=== PATIENT | female | born 1970 | race Caucasian/White ===

== ENCOUNTER 2020-03-06 12:35 | Emergency (ER) | payer MEDICAID ==
[~2020-03-06] VITALS: Ht 152.4 cm; Wt 76.2 kg
--- NOTE | 2020-03-06 12:40 | NUR ---
Patient to ER bed 03 to gown for evaluation. Side rails up.
--- NOTE | 2020-03-06 12:42 | NUR ---
Per patient unable to see letters with L eye due to blurred vision, L eye acuity is 20/20
[2020-03-06 12:43] VITALS: BP_SYST 142
--- NOTE | 2020-03-06 12:51 | NUR ---
RECEIVED AND IN ROOM, GERRY TO ASSUME CARE
--- NOTE | 2020-03-06 12:58 | NUR ---
BIB FRIEND FROM HOME FOR LT EYE PAIN AND DISCHARGE. DIFFICULTY KEEPING EYE OPEN DUE TO IRRITATION. COMMUNICATES CLEARYL NAD. STATED WEARS CONTACTS AND RUBBED HER EYE WITH PAPER TOWEL LARGE WHITENED AREA ON CORNEA
--- NOTE | 2020-03-06 13:00 | NUR ---
Dr Bryan at bedside examining patient
--- NOTE | 2020-03-06 13:15 | NUR ---
Patient given written and verbal discharge instructions and verbalizes understanding. ER MD discussed with patient the results and treatment provided. Patient in stable condition. ID arm band removed. Rx of given. Patient educated on pain management and to follow up with PMD. Pain Opportunity for questions provided and answered. Medication side effect fact sheet provided.
[2020-03-06 13:20] VITALS: BP_SYST 142
== END 2020-03-06 13:20 | disposition home or self-care (01) ==
LOC: SED 12:35
DX: H16.002 Unspecified corneal ulcer, left eye (principal)
CPT/HCPCS: 99283

== ENCOUNTER 2021-03-13 19:38 | Emergency (ER) | payer MEDICAID ==
[~2021-03-13] VITALS: Ht 152.4 cm; Wt 74.8 kg
[2021-03-13 20:09] VITALS: BP_SYST 153
== END 2021-03-13 22:00 | disposition left against medical advice (07) ==
LOC: SED 19:38
DX: R53.1 Weakness (principal); Z53.21 Procedure and treatment not carried out due to patient leaving prior to being seen by health care provider

== ENCOUNTER 2021-03-14 05:18 | Emergency (ER) | payer MEDICAID ==
[~2021-03-14] VITALS: Ht 152.4 cm; Wt 74.8 kg
[2021-03-14 05:36] VITALS: BP_SYST 140
[2021-03-14] MEDS ORDERED: ENALAPRILAT DIHYDRATE 1.25 MG/ML VIAL IVP ONE (05:45)
[2021-03-14 06:34] LABS: BASOPHILS % (AUTO) 0.2 % (0.0-2.0); EOSINOPHILS # (AUTO) 0.1 K/uL (0.0-0.4); EOSINOPHILS % (AUTO) 0.5 % (0.0-4.0); HEMATOCRIT 41.3 % (36-48); HEMOGLOBIN 13.5 g/dL (12.0-16.0); LYMPHOCYTES # (AUTO) 2.1 K/uL (1.0-5.5); LYMPHOCYTES % (AUTO) 18.8 % (20.5-51.5); MEAN CORPUSCULAR HEMOGLOBIN 28 pg (27-31); MEAN CORPUSCULAR HGB CONC 33 % (32-36); MEAN CORPUSCULAR VOLUME 86 fL (79.0-98.0); MONOCYTES # (AUTO) 0.6 K/uL (0.0-1.0); MONOCYTES % (AUTO) 5.7 % (1.7-9.3); NEUTROPHILS # (AUTO) 8.5 K/uL (1.8-7.7); NEUTROPHILS % (AUTO) 74.8 % (40.0-70.0); PLATELET COUNT (AUTO) 329 K/uL (130-430); RED BLOOD CELL COUNT(AUTO) 4.82 MIL/uL (4.2-6.2); RED CELL DISTRIBUTION WIDTH 14.4 % (9.0-15.0); WHITE BLOOD COUNT (AUTO) 11.4 K/uL (4.8-10.8)
[2021-03-14 06:35] LABS: CALCIUM 8.4 mg/dL (8.4-11.0); CREATININE 0.79 mg/dL (0.55-1.30); POTASSIUM 3.3 mmol/L (3.5-5.1)
[2021-03-14 06:49] LABS: THYROID STIMULATING HORMONE 1.53 uIu/mL (0.36-3.74); TOTAL BILIRUBIN 0.2 mg/dL (0.0-1.0)
[2021-03-14] MEDS ORDERED: DEXTROSE 50% JECT 50 ML DISP.SYRIN ONE (07:12)
[2021-03-14] MEDS ORDERED: DEXTROSE 50% JECT 50 ML DISP.SYRIN IVP ONE (07:30)
[2021-03-14] MEDS ORDERED: D5NS 1,000 ML IV ONE (07:30)
[2021-03-14] MEDS ORDERED: POTASSIUM CHLORIDE 20 MEQ TAB.PRT.SR PO ONE (07:30)
[2021-03-14 07:39] VITALS: BP_SYST 129
[2021-03-14 08:06] LABS: BARBITURATE, URINE NEGATIVE (NEG <=200); BENZODIAZEPINE, URINE NEGATIVE (NEG <=150); CANNABINOID, URINE POSITIVE (NEG <=50); COCAINE, URINE NEGATIVE (NEG <=150); METHAMPHETAMINES SCREEN,URINE POSITIVE (NEG <=500); OPIATE, URINE NEGATIVE (NEG <=100); PHENCYCLIDINE SCREEN,URINE NEGATIVE (NEG <=25); UR TRICYCLIC ANTIDEPRESSANTS NEGATIVE (NEG <=300); URINE AMPHETAMINE POSITIVE (NEG <=500); URINE METHADONE NEGATIVE (NEG <=200); URINE OXYCODONE SCREEN NEGATIVE (NEG <=100); URINE PROPOXYPHENE SCREEN NEGATIVE (NEG <=300)
== END 2021-03-14 07:38 | disposition left against medical advice (07) ==
LOC: SED 05:18
DX: T46.5X2A Poisoning by other antihypertensive drugs, intentional self-harm, initial encounter (principal); F15.988 Other stimulant use, unspecified with other stimulant-induced disorder; E87.6 Hypokalemia; M79.641 Pain in right hand; E16.2 Hypoglycemia, unspecified; R53.83 Other fatigue; I10 Essential (primary) hypertension; F12.90 Cannabis use, unspecified, uncomplicated; Z79.899 Other long term (current) drug therapy; Y92.89 Other specified places as the place of occurrence of the external cause
CPT/HCPCS: 36415; 80053; 80307; 82962; 83880; 84443; 84484; 85025; 85379; 93005; 96374; 99284

== ENCOUNTER 2021-03-14 13:15 | Emergency (ER) | payer MEDICAID ==
[~2021-03-14] VITALS: Ht 162.6 cm; Wt 72.6 kg
[2021-03-14 13:27] VITALS: BP_SYST 146
[2021-03-14 14:37] VITALS: BP_SYST 146
== END 2021-03-14 14:38 | disposition home or self-care (01) ==
LOC: SED 13:15
DX: F15.988 Other stimulant use, unspecified with other stimulant-induced disorder (principal); M79.641 Pain in right hand; R53.1 Weakness; I10 Essential (primary) hypertension
CPT/HCPCS: 70450-TC; 76376; 82962; 99284

== ENCOUNTER 2021-05-17 22:27 | Emergency (ER) | payer MEDICAID, SELFPAY ==
[~2021-05-17] VITALS: Ht 152.4 cm; Wt 70.3 kg
--- NOTE | 2021-05-17 22:49 | NUR ---
Patient triaged and placed in TENT. VSS and patient appears in no acute distress at this time. Accompanied by FAMILY, awaiting available bed, and MD notified of need for MSE.
[2021-05-17 22:50] VITALS: BP_SYST 151
[2021-05-17] MEDS ORDERED: predniSONE 20 MG TABLET PO ONE (23:30)
--- NOTE | 2021-05-17 23:30 | NUR ---
DR. PADILLA AT BEDSIDE FOR EVALUATION.
--- NOTE | 2021-05-17 23:38 | NUR ---
STREP AND COVID SWAB COLLECTED AND SENT TO LAB FOR ANALYSIS.
--- NOTE | 2021-05-17 23:38 | NUR ---
MEDICATION ADMINISTERED ORDERED.
--- NOTE | 2021-05-18 00:14 | NUR ---
PATIENT AAOX4 AND AMBULATORY C/O SOB TODAY WITH COUGH, FEVER, FATIGUE, SORE THROAT. TOOK A HOME TEST X 2 WITH POSITIVE RESULTS. STATED HER SON WAS EXPOSED AT SCHOOL. VSS. O2 SATURATION AT 100%. CURRENTLY STATING 6/10 ON THE PAIN SCALE.
[2021-05-18] MEDS ORDERED: IBUP-1969 PO (01:23)
[2021-05-18] MEDS ORDERED: AMOXICILLIN 500 MG CAPSULE PO ONE (01:30)
--- NOTE | 2021-05-18 01:30 | NUR ---
Dr. Sosa at bedside updating patient.
[2021-05-18] MEDS ORDERED: AMOX500C2 PO (01:31)
[2021-05-18 01:45] VITALS: BP_SYST 151
--- NOTE | 2021-05-18 01:45 | NUR ---
Patient given written and verbal discharge instructions and verbalizes understanding. ER MD discussed with patient the results and treatment provided. Patient in stable condition. ID arm band removed. Rx of AMOXICILLIN, MOTRIN given. Patient educated on pain management and to follow up with PMD. Pain Scale 0/10. Opportunity for questions provided and answered. Medication side effect fact sheet provided.
== END 2021-05-18 01:45 | disposition home or self-care (01) ==
LOC: SED 22:27
DX: U07.1 COVID-19 (principal); J02.9 Acute pharyngitis, unspecified; F15.988 Other stimulant use, unspecified with other stimulant-induced disorder; I10 Essential (primary) hypertension; Z79.899 Other long term (current) drug therapy
CPT/HCPCS: 86403; 87081; 87426; 99283; C9803; J7512; U0003; 36415

== ENCOUNTER 2021-05-21 12:33 | Emergency (ER) | payer MEDICAID, SELFPAY ==
[~2021-05-21] VITALS: Ht 160 cm; Wt 71.7 kg
[~2021-05-21 12:33] MED LIST: AMOX500C2 PO; IBUP-1969 PO
[2021-05-21 12:48] VITALS: BP_SYST 111
[2021-05-21] MEDS ORDERED: predniSONE 20 MG TABLET PO ONE (15:15)
[2021-05-21] MEDS ORDERED: predniSONE 10 MG TABLET ONE (15:40)
[2021-05-21] MEDS ORDERED: PRED20TA PO (15:55)
[2021-05-21 16:12] VITALS: BP_SYST 111
== END 2021-05-21 16:12 | disposition home or self-care (01) ==
LOC: SED 12:33
DX: U07.1 COVID-19 (principal); J12.82 Pneumonia due to coronavirus disease 2019; F15.988 Other stimulant use, unspecified with other stimulant-induced disorder; I10 Essential (primary) hypertension; Z79.899 Other long term (current) drug therapy
CPT/HCPCS: 71045; 99283; J7512 ×2; 99284; U0003

== ENCOUNTER 2021-09-26 12:29 | Emergency (ER) | payer MEDICAID, SELFPAY ==
[~2021-09-26] VITALS: Ht 152.4 cm; Wt 72.1 kg
[~2021-09-26 12:29] MED LIST changes: +PRED20TA PO
[2021-09-26 12:57] VITALS: BP_SYST 141
--- NOTE | 2021-09-26 13:00 | NUR ---
PT TRIAGED AND PLACED IN WAITING ROOM FOR AVAILABLE BED IN MAIN ED
--- NOTE | 2021-09-26 14:22 | NUR ---
DR FISHER AT BEDSIDE
[2021-09-26] MEDS ORDERED: methylPREDNISolone SOD SUCC/PF 62.5 MG/ML VIAL IVP ONE (14:45)
[2021-09-26] MEDS ORDERED: DIPHENHYDRAMINE INJ 50 MG/ML VIAL IVP ONE (14:45)
[2021-09-26] MEDS ORDERED: FAMOTIDINE PF 20 MG/2 ML VIAL IVP ONE (14:45)
[2021-09-26] MEDS ORDERED: FAMO-132 PO (15:22)
[2021-09-26] MEDS ORDERED: PRED20TA PO ×2 (15:22→15:24)
[2021-09-26] MEDS ORDERED: EPIN0.3P3 IM (15:22)
[2021-09-26] MEDS ORDERED: BEN50 PO (15:22)
[2021-09-26 15:56] VITALS: BP_SYST 138
--- NOTE | 2021-09-26 15:57 | NUR ---
Patient given written and verbal discharge instructions and verbalizes understanding. ER MD discussed with patient the results and treatment provided. Patient in stable condition. ID arm band removed. IV catheter removed intact and dressing applied, no active bleeding. Rx of Benadryl, epinephrine, Pepcid, and steroid given. Patient educated on pain management and to follow up with PMD. Pain Scale . Opportunity for questions provided and answered. Medication side effect fact sheet provided.
--- NOTE | 2021-09-26 16:19 | NUR ---
Patient given written and verbal discharge instructions and verbalizes understanding. NATHEN kline MD discussed with patient the results and treatment provided. Patient in stable condition. ID arm band removed. IV catheter removed intact and dressing applied, no active bleeding. Rx of benadryl, epi pen pepcid, prednisone given. Patient educated on pain management and to follow up with PMD. Pain Scale 0. Opportunity for questions provided and answered. Medication side effect fact sheet provided.
== END 2021-09-26 16:19 | disposition home or self-care (01) ==
LOC: SED 12:29
DX: T78.40XA Allergy, unspecified, initial encounter (principal); X58.XXXA Exposure to other specified factors, initial encounter; I10 Essential (primary) hypertension
CPT/HCPCS: 96374; 96375; 99284; J1200; J2930; J3490

== ENCOUNTER 2022-01-22 12:34 | Emergency (ER) | payer MEDICAID ==
[~2022-01-22] VITALS: Ht 154.9 cm; Wt 70.8 kg
[~2022-01-22 12:34] MED LIST changes: +BEN50 PO; +EPIN0.3P3 IM; +FAMO-132 PO
[2022-01-22 12:41] VITALS: BP_SYST 139
[2022-01-22] MEDS ORDERED: DIPH-TET-PERTUS Vaccine 0.5 ML VIAL (ADACEL) I.M. ONE (14:45)
[2022-01-22] MEDS ORDERED: CLINDAMYCIN 600 mg/50mL D5W 50 ML IV ONE (14:45)
[2022-01-22] MEDS ORDERED: methylPREDNISolone SOD SUCC/PF 62.5 MG/ML VIAL IVP ONE (14:45)
[2022-01-22] MEDS ORDERED: KETOROLAC TROMETHAMINE 30 MG VIAL IVP ONE (14:45)
[2022-01-22] MEDS ORDERED: TOBR5DRO45 EACH EYE (17:13)
[2022-01-22] MEDS ORDERED: CLE150 PO (17:13)
== END 2022-01-22 12:44 | disposition home or self-care (01) ==
LOC: SED 12:34
DX: H44.002 Unspecified purulent endophthalmitis, left eye (principal); I10 Essential (primary) hypertension
CPT/HCPCS: 36415; 87040; 90471; 90715; 96365; 96375; 99284; J1885; J2930; J3490

== ENCOUNTER 2023-01-25 08:14 | Emergency (ER) | payer MEDICAID ==
[~2023-01-25] VITALS: Ht 154.9 cm; Wt 77.1 kg
[~2023-01-25 08:14] MED LIST changes: -AMOX500C2 PO; +DOXY100C5 PO; -IBUP-1969 PO; +OSEL75CA PO; +TOBR5DRO45 EACH EYE
[2023-01-25 08:20] VITALS: BP_SYST 142
--- NOTE | 2023-01-25 08:24 | NUR ---
Placed in room 08 . Placed on monitor car operator, blood pressure machine and pulse oximeter. To gown for exam. Side rails up. Report given to BECK BAUGH.
--- NOTE | 2023-01-25 08:35 | NUR ---
DR LEYVA PERFORMING PROCEDURE TO FINGER
[2023-01-25] MEDS ORDERED: CEPH-548 PO (08:42)
[2023-01-25] MEDS ORDERED: IBUP-1971 PO (08:43)
[2023-01-25] MEDS ORDERED: KETOROLAC TROMETHAMINE 60 MG/2 ML VIAL IM ONE (08:45)
[2023-01-25] MEDS ORDERED: HYDROcodone/ACETAMIN 10-325 MG TAB PO ONE (08:45)
[2023-01-25] MEDS ORDERED: cefTRIAXone 1 GM VIAL IM ONE (08:45)
--- NOTE | 2023-01-25 09:02 | NUR ---
MEDICATED ORDERED. AWAITING DISCHARGE PAPERWORK
--- NOTE | 2023-01-25 09:03 | NUR ---
2nd digit of right hand was cleaned with alcohol swab. nonadhesive + tubular gauze was applied over the digit.
--- NOTE | 2023-01-25 09:27 | NUR ---
Patient given written and verbal discharge instructions and verbalizes understanding. ER MD discussed with patient the results and treatment provided. Patient in stable condition. ID arm band removed. Rx of IBUPROFEN, KEFLEX given. Patient educated on pain management and to follow up with PMD. Pain Scale 0/10. Opportunity for questions provided and answered. Medication side effect fact sheet provided.
== END 2023-01-25 09:27 | disposition home or self-care (01) ==
LOC: SED 08:14
DX: L02.511 Cutaneous abscess of right hand (principal); L03.011 Cellulitis of right finger; I10 Essential (primary) hypertension; F12.90 Cannabis use, unspecified, uncomplicated; Z79.899 Other long term (current) drug therapy
CPT/HCPCS: 99284; 26010; 96372; 29130; J0696; J1885

== ENCOUNTER 2023-12-06 02:56 | Inpatient (IN) | payer MEDICAID, OTHER ==
[2023-12-06] VITALS (7 sets, daily range): BP systolic 126–141; PULSE 102–111; RESP 18–20; TEMP 97.3–98.4; O2SAT 94–99
[~2023-12-06] VITALS: Ht 152.4 cm; Wt 77.1 kg
[~2023-12-06 02:56] MED LIST changes: +CEPH-548 PO; +IBUP-1971 PO
[2023-12-06 04:13] LABS: BASOPHILS % (AUTO) 0.4 % (0.0-2.0); EOSINOPHILS # (AUTO) 0.1 K/uL (0.0-0.4); EOSINOPHILS % (AUTO) 1.3 % (0.0-4.0); HEMATOCRIT 41.4 % (36-48); HEMOGLOBIN 13.8 g/dL (12.0-16.0); LYMPHOCYTES # (AUTO) 1.5 K/uL (1.0-5.5); LYMPHOCYTES % (AUTO) 27.6 % (20.5-51.5); MEAN CORPUSCULAR HEMOGLOBIN 29 pg (27-31); MEAN CORPUSCULAR HGB CONC 33 % (32-36); MEAN CORPUSCULAR VOLUME 86 fL (79.0-98.0); MONOCYTES # (AUTO) 0.7 K/uL (0.0-1.0); MONOCYTES % (AUTO) 12.8 % (1.7-9.3); NEUTROPHILS # (AUTO) 3.1 K/uL (1.8-7.7); NEUTROPHILS % (AUTO) 57.9 % (40.0-70.0); PLATELET COUNT (AUTO) 280 K/uL (130-430); RED BLOOD CELL COUNT(AUTO) 4.82 MIL/uL (4.2-6.2); WHITE BLOOD COUNT (AUTO) 5.3 K/uL (4.8-10.8)
[2023-12-06 04:37] LABS: ALANINE AMINOTRANSFERASE 30 U/L (12-78); ANION GAP 6 (5-15); ASPARTATE AMINOTRANSFERASE 22 U/L (10-37); CALCIUM 8.6 mg/dL (8.4-11.0); CARBON DIOXIDE 29 mmol/L (23-29); CHLORIDE 106 mmol/L (98-107); CREATININE 0.68 mg/dL (0.55-1.30); GFR AFRICAN AMERICAN 118 mL/min (>90); GFR NON AFRICAN-AMERICAN 97 mL/min (>90); GLUCOSE 79 mg/dL (74-106); POTASSIUM 3.6 mmol/L (3.5-5.1); SODIUM SERUM 141 mmol/L (136-145); TOTAL BILIRUBIN 0.2 mg/dL (0.0-1.0); TOTAL PROTEIN, SERUM 7.1 g/dL (6.4-8.3); UREA NITROGEN, BLOOD 9 mg/dL (8-21)
[2023-12-06 04:53] LABS: BILIRUBIN,DIRECT 0.1 mg/dL (0.0-0.3)
[2023-12-06] MEDS: ASPIRIN 325 MG TABLET PO ONE (05:23)
[2023-12-06] MEDS ORDERED: ZOLPIDEM TARTRATE 5 MG TABLET PO PRN (07:30)
[2023-12-06] MEDS ORDERED: MORPHINE 2 MG/ML INJ. SYRINGE IVP PRN ×2 (07:30)
[2023-12-06] MEDS ORDERED: DOCUSATE SODIUM 100 MG CAPSULE PO PRN (07:30)
[2023-12-06] MEDS ORDERED: NALOXONE HCL 0.4 MG/ML AMP (NARCAN) IVP PRN ×2 (07:30)
[2023-12-06] MEDS ORDERED: LORazepam 2 MG/ML VIAL IVP PRN (07:30)
[2023-12-06] MEDS ORDERED: MUPIROCIN 2% TOPICAL OINTMENT 22 GM NS PRN (07:30)
[2023-12-06] MEDS ORDERED: POTASSIUM CHLORIDE 20 MEQ TABLET.ER PO PRN (07:30)
[2023-12-06] MEDS ORDERED: MAGNESIUM SULFATE 50 ML IV PRN (07:30)
[2023-12-06] MEDS ORDERED: ONDANSETRON HCL 4 MG/2 ML VIAL IVP PRN (07:30)
[2023-12-06] MEDS ORDERED: ACETAMINOPHEN 325 MG TABLET PO PRN ×2 (07:30→08:15)
[2023-12-06] MEDS: guaiFENesin/DEXTROMETHORPHAN 10 ML UDC PO PRN (09:18)
[2023-12-06] MEDS: ALBUTEROL SULFATE 0.083% 2.5 MG/3 ML VIAL.NEB INH ONE (09:29)
[2023-12-06 11:25] LABS: BILIRUBIN,URINE NEGATIVE (NEGATIVE); BLOOD, URINE NEGATIVE (NEGATIVE); CLARITY/URINE SL CLOUDY (CLEAR); COLOR,URINE YELLOW (YELLOW); GLUCOSE,URINE NEGATIVE (NEGATIVE); KETONES,URINE NEGATIVE (NEGATIVE); LEUKOCYTE ESTERASE ,URINE 3+ (NEGATIVE); NITRITE, URINE NEGATIVE (NEGATIVE); PH,URINE 6.5 (5.0-8.0); PROTEIN URINE NEGATIVE (NEGATIVE)
[2023-12-06 11:35] LABS: BACTERIA,URINE FEW /HPF (None Seen); RBC,URINE 0-3 /HPF (0-3); TRICHOMONAS,URINE None Seen /HPF (None Seen); YEAST,URINE None Seen /HPF (None Seen)
[2023-12-06 11:36] LABS: CALCIUM OXALATE CRYSTALS,UR None Seen /HPF (None Seen); CALCIUM PHOSPHATE CRYSTALS,UR None Seen /HPF (None Seen); COARSE GRANULAR CASTS,URINE None Seen /LPF (None Seen); FINE GRANULAR CASTS,URINE None Seen /LPF (None Seen); HYALINE CASTS, URINE None Seen /LPF (None Seen); MUCUS,URINE 1+ /LPF (None Seen); OTHER CASTS, URINE None Seen /LPF (None Seen); OTHER CRYSTALS,URINE None Seen /HPF (None Seen); TRIPLE PHOSPHATE CRYSTAL,UR None Seen /HPF (None Seen); URIC ACID CRYSTALS,URINE None Seen /HPF (None Seen); URINE AMORPHOUS PHOSPHATES None Seen /HPF (None Seen); URINE AMORPHOUS URATE None Seen /HPF (None Seen); WAXY CASTS,URINE None Seen /LPF (None Seen)
[2023-12-06 11:43] LABS: BARBITURATE, URINE NEGATIVE (NEG <=200); BENZODIAZEPINE, URINE NEGATIVE (NEG <=150); CANNABINOID, URINE NEGATIVE (NEG <=50); COCAINE, URINE NEGATIVE (NEG <=150); METHAMPHETAMINES SCREEN,URINE POSITIVE (NEG <=500); OPIATE, URINE NEGATIVE (NEG <=100); PHENCYCLIDINE SCREEN,URINE NEGATIVE (NEG <=25); UR TRICYCLIC ANTIDEPRESSANTS NEGATIVE (NEG <=300); URINE AMPHETAMINE POSITIVE (NEG <=500); URINE METHADONE NEGATIVE (NEG <=200); URINE OXYCODONE SCREEN NEGATIVE (NEG <=100)
[2023-12-06] MEDS ORDERED: ALBUTEROL SULFATE 0.083% 2.5 MG/3 ML VIAL.NEB INH SCH (14:00)
[2023-12-06] MEDS: ALBUTEROL SULFATE 0.083% 2.5 MG/3 ML VIAL.NEB INH SCH (14:53)
[2023-12-06] MEDS ORDERED: guaiFENesin 200 MG/10 ML UDC ONE (19:54)
[2023-12-06] MEDS ORDERED: ALBUTEROL SULFATE 0.083% 2.5 MG/3 ML VIAL.NEB INH ONE (23:43)
[2023-12-07 07:38] VITALS: O2SAT 98
[2023-12-07 07:53] LABS: BASOPHILS % (AUTO) 0.4 % (0.0-2.0); EOSINOPHILS # (AUTO) 0.1 K/uL (0.0-0.4); EOSINOPHILS % (AUTO) 1.3 % (0.0-4.0); HEMATOCRIT 43.2 % (36-48); HEMOGLOBIN 14.2 g/dL (12.0-16.0); LYMPHOCYTES # (AUTO) 2.2 K/uL (1.0-5.5); LYMPHOCYTES % (AUTO) 40.1 % (20.5-51.5); MEAN CORPUSCULAR HEMOGLOBIN 29 pg (27-31); MEAN CORPUSCULAR HGB CONC 33 % (32-36); MEAN CORPUSCULAR VOLUME 86 fL (79.0-98.0); MONOCYTES # (AUTO) 0.6 K/uL (0.0-1.0); MONOCYTES % (AUTO) 10.3 % (1.7-9.3); NEUTROPHILS # (AUTO) 2.6 K/uL (1.8-7.7); NEUTROPHILS % (AUTO) 47.9 % (40.0-70.0); PLATELET COUNT (AUTO) 276 K/uL (130-430); WHITE BLOOD COUNT (AUTO) 5.5 K/uL (4.8-10.8)
[2023-12-07 08:29] LABS: CALCIUM 8.8 mg/dL (8.4-11.0); CREATININE 0.6 mg/dL (0.55-1.30); POTASSIUM 4.1 mmol/L (3.5-5.1)
[2023-12-07] MEDS: ASPIRIN 81 MG TAB.CHEW PO SCH (09:03)
[2023-12-07] MEDS ORDERED: ASPIRIN 81 MG TAB.CHEW ONE (09:03)
[2023-12-07] MEDS ORDERED: DOXY100C5 PO (09:39)
[2023-12-07] MEDS: DOXYCYCLINE HYCLATE 100 MG CAPSULE PO ONE (10:03)
[2023-12-07] MEDS ORDERED: guaiFENesin/DEXTROMETHORPHAN 10 ML UDC ONE (10:48)
[2023-12-07 12:03] VITALS: BP_SYST 132; PULSE 102; RESP 20; TEMP 98.6; O2SAT 96
[2023-12-07 12:16] VITALS: BP_SYST 132; PULSE 102; RESP 20; TEMP 97.7; O2SAT 96
[2023-12-07] MEDS ORDERED: DOXYCYCLINE HYCLATE 100 MG CAPSULE PO SCH (21:00)
== END 2023-12-07 12:15 | disposition home or self-care (01) | DRG 145 ==
LOC: SED 02:56 → STU 05:28
PROVIDERS: ADMIT Family Medicine; ATTEND Family Medicine
DX: J40 Bronchitis, not specified as acute or chronic (principal); I21.A1 Myocardial infarction type 2; E44.1 Mild protein-calorie malnutrition; J06.9 Acute upper respiratory infection, unspecified; I10 Essential (primary) hypertension; N39.0 Urinary tract infection, site not specified; F15.90 Other stimulant use, unspecified, uncomplicated; Z68.33 Body mass index [BMI] 33.0-33.9, adult; Z79.899 Other long term (current) drug therapy
CPT/HCPCS: 36415; 71045; 80048; 80076; 80307; 81000; 81001; 81015; 83735; 83880; 84484; 85025; 85379; 87086; 93005; 93306; 94640; 94760; 99291; G0378

== ENCOUNTER 2024-01-15 07:00 | Emergency (ER) | payer OTHER ==
[~2024-01-15] VITALS: Ht 157.5 cm; Wt 77.1 kg
[~2024-01-15 07:00] MED LIST changes: -CEPH-548 PO
[2024-01-15 07:11] VITALS: BP_SYST 156; PULSE 119; RESP 18; TEMP 98.3; O2SAT 98
[2024-01-15] MEDS ORDERED: CORTEARS RIGHT EAR (07:21)
[2024-01-15] MEDS ORDERED: CEPH-548 PO (07:21)
[2024-01-15] MEDS ORDERED: IBUP-1969 PO (07:21)
[2024-01-15 07:31] VITALS: BP_SYST 156; PULSE 119; RESP 18; TEMP 98.3; O2SAT 98
== END 2024-01-15 07:30 | disposition home or self-care (01) ==
LOC: SED 07:00
DX: H60.92 Unspecified otitis externa, left ear (principal); R51.9 Headache, unspecified; I10 Essential (primary) hypertension; Z79.899 Other long term (current) drug therapy
CPT/HCPCS: 99283